=== PATIENT | male | born 1965 | race Caucasian/White ===

== ENCOUNTER 2017-05-26 08:39 | Day surgery (SDC) | payer OTHER ==
[2017-05-23 11:21] VITALS: BMI 32.0
[2017-05-26] MEDS ORDERED: Simethicone 40 mg/0.6 ml Liquid (30 ml) ONE (10:57)
[2017-05-26] MEDS ORDERED: Lidocaine Hydrochloride 5 ML INJ ONE (11:00)
[2017-05-26] MEDS ORDERED: Propofol 10 mg/ml Inj (20 ML) ONE ×3 (11:00→11:23)
[2017-05-26] MEDS ORDERED: Midazolam 2 MG/2 ML VIAL ONE (11:00)
[2017-05-26 11:59] VITALS: TEMP 97.5
[2017-05-26 12:44] VITALS: BP 103/68; PULSE 70; RESP 16; O2SAT 98
== END 2017-05-26 12:35 | disposition home or self-care (01) ==
LOC: C.ENDO 08:39
PROVIDERS: ATTEND Internal Medicine Gastroenterology
DX: K52.9 Noninfective gastroenteritis and colitis, unspecified (principal); K21.0 Gastro-esophageal reflux disease with esophagitis; K29.70 Gastritis, unspecified, without bleeding; K64.0 First degree hemorrhoids
CPT/HCPCS: 43239; 45378; 88305; J2250; J2704